=== PATIENT | female | born 1960 | race African-American/Black ===

== ENCOUNTER 2017-12-17 17:35 | Emergency (ER) | payer MEDICARE ==
[2017-12-17] MEDS: IV NORMAL SALINE 1000ML BAG 1,000 ML IV (18:47)
[2017-12-17] MEDS: METOCLOPRAMIDE HCL 10 MG/2 ML VIAL. IV (19:47)
[2017-12-17] MEDS: diphenhydrAMINE 50 MG/ML VIAL IM (19:48)
[2017-12-17] MEDS: DIPHTH,PERTUSS(ACELL),TET TOX 0.5 ML DISP.SYRIN. VAX IM (19:48)
[2017-12-17] MEDS: LIDOCAINE 2% 20 ML VIAL. IJ (19:49)
[2017-12-17 20:21] LABS: ADD MAN DIFF? NO
[2017-12-17 20:26] LABS: BASO % 0 % (0-3); EOS # 0.2 x10^3/uL (0.0-0.7); EOS % 4 % (0-3); HEMATOCRIT 31.2 % (36.0-47.0); HEMOGLOBIN 10.3 g/dL (12.0-15.5); LYMPH # 1.9 x10^3/uL (1.0-4.8); LYMPH % 32 % (24-48); MEAN CORPUSCULAR HEMOGLOBIN 31 pg (25-35); MEAN CORPUSCULAR HGB CONC 33 g/dL (31-37); MEAN CORPUSCULAR VOLUME 93 fL (79-100); MONO # 0.6 x10^3/uL (0.0-1.1); MONO % 10 % (0-9); NEUT # 3.1 x10^3uL (1.8-7.7); NEUT % 54 % (31-73); PLATELET COUNT 225 x10^3/uL (140-400); RED BLOOD COUNT 3.35 x10^6/uL (3.50-5.40); RED CELL DISTRIBUTION WIDTH 14.4 % (11.5-14.5); WHITE BLOOD COUNT 5.8 x10^3/uL (4.0-11.0)
[2017-12-17 20:33] LABS: PROTHROMBIN TIME PATIENT 12.4 SEC (11.7-14.0)
[2017-12-17 20:39] LABS: ANION GAP 10 (6-14); BLOOD UREA NITROGEN 21 mg/dL (7-20); BUN/CREATININE RATIO 18 (6-20); CALCIUM 9.2 mg/dL (8.5-10.1); CARBON DIOXIDE 29 mmol/L (21-32); CHLORIDE 103 mmol/L (98-107); CREATININE 1.2 mg/dL (0.6-1.0); GFR 56.4; GLUCOSE 92 mg/dL (70-99); POTASSIUM 4.4 mmol/L (3.5-5.1); SODIUM 142 mmol/L (136-145)
[2017-12-17 20:40] LABS: ETHANOL < 10 mg/dL (0-10)
[2017-12-17 20:45] LABS: ALBUMIN 3.7 g/dL (3.4-5.0); ALBUMIN/GLOBULIN RATIO 1.1 (1.0-1.7); ALK PHOS 97 U/L (46-116); ALT (SGPT) 39 U/L (14-59); AST (SGOT) 31 U/L (15-37); MAGNESIUM 2.2 mg/dL (1.8-2.4); TOTAL BILIRUBIN 0.2 mg/dL (0.2-1.0)
[2017-12-17 20:47] LABS: TROPONINI < 0.017 ng/mL (0.000-0.055)
[2017-12-17 20:51] LABS: NT-PRO BNP 77 pg/mL (0-124)
[2017-12-17] MEDS: IOHEXOL 300 MG/ML 100ML VIAL. IV (20:57)
[2017-12-17] MEDS ORDERED: CONTRAST GIVEN. MC (21:00)
[2017-12-17 22:17] LABS: BILIRUBIN,URINE NEGATIVE (NEG); CLARITY,URINE CLEAR; GLUCOSE,URINE NEGATIVE (NEG); NITRITE,URINE POSITIVE (NEG); PROTEIN,URINE NEGATIVE (NEG-TRACE); UROBILINOGEN,URINE 0.2 mg/dL (0.2 mg/dL)
[2017-12-17 22:21] LABS: COLOR,URINE STRAW
[2017-12-17 22:24] LABS: BACTERIA,URINE FEW /HPF (0-FEW); RBC,URINE OCC /HPF (0-2); SQUAMOUS EPITHELIAL CELL,UR FEW /LPF; WBC,URINE OCC /HPF (0-4)
[2017-12-17] MEDS: NITROFURANTOIN MONOHYD/M-CRYST 100 MG CAPSULE. PO (22:46)
== END 2017-12-17 23:06 | disposition home or self-care (01) ==
LOC: ER 17:35
DX: R51 Headache (principal); R42 Dizziness and giddiness; F31.9 Bipolar disorder, unspecified; E78.00 Pure hypercholesterolemia, unspecified; E03.9 Hypothyroidism, unspecified; G43.909 Migraine, unspecified, not intractable, without status migrainosus; E11.9 Type 2 diabetes mellitus without complications
CPT/HCPCS: 12011; 36415; 70450; 70496; 70498; 71045; 72125; 80053; 81001; 83735; 83880; 84484; 85025; 85610; 87086; 90471; 90715; 93005; 96361; 96372; 96374; 99285-25; G0480; J1200; J2765; J7030; Q9967

== ENCOUNTER 2017-12-23 09:55 | Emergency (ER) | payer MEDICARE | END 2017-12-23 10:54 | disposition home or self-care (01) | LOC: ER 10:54 | DX: S01.81XD Laceration without foreign body of other part of head, subsequent encounter (principal); F41.9 Anxiety disorder, unspecified; F31.9 Bipolar disorder, unspecified; E11.9 Type 2 diabetes mellitus without complications; E78.00 Pure hypercholesterolemia, unspecified; E03.9 Hypothyroidism, unspecified; G43.909 Migraine, unspecified, not intractable, without status migrainosus; Z90.710 Acquired absence of both cervix and uterus; Z98.51 Tubal ligation status; Z88.8 Allergy status to other drugs, medicaments and biological substances; W19.XXXD Unspecified fall, subsequent encounter | CPT/HCPCS: 99281 ==

== ENCOUNTER → 2018-06-29 | Outpatient (CLI) | payer MEDICARE ==
[2017-12-23 09:56] VITALS: BP 97/60
[~2018-06-29] MED LIST: ALPR2TAB PO; ARIP20TA5 PO; BUPR150T15 PO; FENT1PAT19 TP; FURO40TA4 PO; HYDR-2165 PO; LEVO25TA4 PO; NITR100C62 PO; OMEP40CA5 PO; OXYC30TA64 PO; PENT1TAB PO; QUET300T5 PO; SIMV20TA3 PO; TIZA4TAB PO; TOPI25TA7 PO; TRAZ-86 PO; ZOLP10TA4 PO
--- NOTE | 2018-07-11 09:56 | SLEEP ---
DATE OF STUDY: 06/29/2018 REFERRING PHYSICIAN: Lelia Brooks MD. The patient is a 57-year-old who weighs 188 pounds with a BMI of 33. The patient's Saulsbury score was 9. The patient underwent diagnostic sleep study at [facility]. During the night study, the patient spent 431 minutes in bed and slept for 425 minutes with a sleep efficiency of 99%. Sleep latency was 4 minutes with a REM latency of 302 minutes. Overall, sleep architecture showed normal stage 1 sleep, increased stage 2 sleep, absent slow wave and reduced REM sleep. During the night study, the patient had 4 obstructive apneas, 1 mixed apnea and no central apneas and 105 hypopneas. The patient's apnea hypopnea index was 16 per hour, supine index 16 per hour and a REM index of 33 per hour. PLMS were seen at index of 115 per hour and 4 per hour caused EEG arousals. EKG monitoring revealed normal sinus rhythm, average heart rate 61 beats per minute, no sustained arrhythmias observed. Nocturnal oximetry study revealed a mean oxygen saturation 91% with lowest of 70%. 90% of time oxygen saturation remained between 80% and 89%. Due to low AHI, the patient did not meet the split night criteria for CPAP initiation, although she would benefit from return to the sleep lab for CPAP initiation. IMPRESSION: 1. Moderate sleep apnea-hypopnea syndrome with worsening during REM sleep. Total AHI 16 per hour with a REM AHI of 33 per hour. 2. Nocturnal hypoxia secondary to obstructive sleep apnea. 3. Severe PLMS. RECOMMENDATIONS: 1. The patient would benefit from in-lab CPAP titration study. 2. Once optimum CPAP pressure is achieved, then follow up in 4-6 weeks to assess compliance with CPAP and to document clinical improvement. 3. Weight loss is strongly advised. 4. Avoid [employer] depressants. 5. Caution regarding driving until symptoms of sleep apnea resolve with the use of CPAP. 6. The patient should also be further evaluated for symptoms of restless legs during the day and if present, it can be treated with dopaminergic agonist agents. FIONA PONCE MD DR: ANKUSH/bernadette JOB#: [id number] / [id number] LELIA Marquez MD
== END | disposition home or self-care (01) ==
LOC: SLPLAB 18:27
PROVIDERS: ATTEND Pediatrics
DX: G47.33 Obstructive sleep apnea (adult) (pediatric) (principal); G47.34 Idiopathic sleep related nonobstructive alveolar hypoventilation; G47.61 Periodic limb movement disorder
CPT/HCPCS: 95810